=== PATIENT | female | born 2000 | race Caucasian/White ===

== ENCOUNTER 2023-11-27 12:19 | Outpatient (CLI) | payer OTHER, SELFPAY ==
--- NOTE | 2023-11-27 12:15 | RT.EKG_ITS ---
APPROVED REPORT Exam: Resting ECG Reason for Exam: intermittent squeezing cp w/ left shoulder Patient Location: O HR:66 bpm ECG Measurements Heart Rate 66 AXIS MI 144 P 37 QRSd 93 QRS 41 QT 398 T 36 QTc 417 Conclusion Sinus arrhythmia Normal Electrocardiogram
== END 2023-11-27 12:20 | disposition home or self-care (01) ==
LOC: DI.CM 12:22
PROVIDERS: Visit Provider Family Medicine
DX: R07.9 Chest pain, unspecified (principal)
CPT/HCPCS: 93010